=== PATIENT | female | born 1960 ===

== ENCOUNTER 2020-03-09 09:54 | Outpatient (CLI) | payer MEDICAID ==
--- NOTE | 2020-03-10 18:00 | Consultation ---
DATE OF CONSULTATION: 03/09/2020 CONSULTING PHYSICIAN: Hitesh Mccoy MD CHIEF COMPLAINT: History of Crohn disease, referral for colonoscopy. PAST MEDICAL HISTORY: 1. Crohn diagnosed in 1986. 2. Depression. 3. Endometriosis. 4. Hypercholesterolemia. PAST SURGICAL HISTORY: 1. Right ovariectomy. 2. x1. MEDICATIONS: See medication reconciliation list. FAMILY HISTORY: No family history of GI malignancies. SOCIAL HISTORY: Patient denies any tobacco, alcohol, or drug abuse. ALLERGIES: To tetracycline and sulfa. REVIEW OF SYSTEMS: Negative. PHYSICAL EXAMINATION: VITAL SIGNS: Temperature 97.5. Vital signs stable. Weight is 167.5. HEENT: Normocephalic and atraumatic. Sclerae anicteric. NECK: Supple. No evidence of obvious lymphadenopathy. CARDIOVASCULAR: Regular rate and rhythm. Plus S1-S2. LUNGS: Clear to auscultation bilaterally. ABDOMEN: Positive bowel sounds. Soft and nontender. No rebound. No guarding. No peritoneal sign. EXTREMITIES: No cyanosis, no clubbing, no edema. ASSESSMENT AND PLAN: This is a 59-year-old female with Crohn disease, not on any medication at this time, was referred for evaluation of Crohn disease and colonoscopy screening. Patient was given instruction for colonoscopy. Risks and benefits of procedure were explained to her. We will schedule her as soon as authorization is obtained. Hitesh Mccoy M.D. DR: CECIL JOB#: [id number] CC:
== END 2020-03-09 11:54 | disposition home or self-care (01) ==
LOC: PAN 09:54
DX: K50.90 Crohn's disease, unspecified, without complications (principal); F32.9 Major depressive disorder, single episode, unspecified; E78.00 Pure hypercholesterolemia, unspecified; Z90.721 Acquired absence of ovaries, unilateral; Z88.2 Allergy status to sulfonamides
CPT/HCPCS: G0463